=== PATIENT | male | born 1965 | race Hispanic/Latino ===

== ENCOUNTER 2020-03-26 07:30 | Day surgery (SDC) | payer OTHER ==
[2020-03-22 10:27] LABS: BUN/Creatinine Ratio 36; Blood Urea Nitrogen 25 mg/dL (9-20); Calcium 9.2 mg/dL (8.4-10.2); Hemolysis Index 5
[~2020-03-26 07:30] MED LIST: ceFAZolin/Water 2 GM/20 ML 2 GM/20 ML SYRINGE IV SCH
--- NOTE | 2020-03-26 08:10 | Anesthesia Consultation ---
Anesthesia Consult and Med Hx Date of service: 03/26/20 - Airway Anesthetic Teeth Evaluation: Caps, Crowns ROM Head & Neck: Adequate Mental/Hyoid Distance: Adequate Mallampati Class: Class III Intubation Access Assessment: Possibly Difficult - Pre-Operative Health Status ASA Pre-Surgery Classification: ASA3 Proposed Anesthetic Plan: MAC - Pulmonary Hx Smoking: Yes (STOPPED X 5 YRS) Hx Asthma: No Hx Respiratory Symptoms: No SOB: No COPD: No Home Oxygen Therapy: No Hx Pneumonia: No Hx Sleep Apnea: Yes (BERTIN PRE SCREEN HIGH RISK) - Cardiovascular System Hx Hypertension: Yes (X 15 YRS) Hx Coronary Artery Disease: No Hx Heart Attack/AMI: No Hx Angina: No Hx Percutaneous Transluminal Coronary Angioplasty (PTCA): No Hx Cardia Arrhythmia: No Hx Pacemaker: No Hx Internal Defibrillator: No Hx Valvular Heart Disease: No Hx Heart Murmur: No Hx Peripheral Vascular Disease: No - Central Nervous System Hx Neuromuscular Disorder: No Hx Seizures: No CVA: No Hx Back Pain: No Hx Psychiatric Problems: No - Gastrointestinal Hx Ulcer: No Hx Gastroesophageal Reflux Disease: Yes - Endocrine Hx Renal Disease: No Hx End Stage Renal Disease: No Hx Cirrhosis: No Hx Liver Disease: Yes (hep A) Hx Insulin Dependent Diabetes: No Hx Non-Insulin Dependent Diabetes: Yes Hx Thyroid Disease: No Hx Hypothyroidism: No Hx Hyperthyroidism: No - Hematic Hx Anemia: No Hx Sickle Cell Disease: No - Other Systems Hx Alcohol Use: No Hx Substance Use: No Hx Cancer: No Hx Obesity: Yes
--- NOTE | 2020-03-26 08:11 | Anesthesia Day of Surgery ---
Anesthesia Day of Surgery - Day of Surgery Patient Examined: Yes Patient H&P Reviewed: Yes Patient is NPO: Yes
[2020-03-26] MEDS ORDERED: LACTATED RINGERS 1,000 ML IV SCH (08:15)
[2020-03-26] MEDS ORDERED: LACTATED RINGERS 1,000 ML ONE (08:24)
[2020-03-26] MEDS ORDERED: fentaNYL 100 MCG/2 ML INJ ONE (10:18)
[2020-03-26] MEDS ORDERED: LIDOCAINE MPF (2%) 20 MG/1 ML VIAL 5 ML ONE (10:18)
[2020-03-26] MEDS ORDERED: MIDAZOLAM 2 MG/2 ML INJ ONE (10:18)
[2020-03-26] MEDS ORDERED: KETAMINE/STERILE WATER 50 MG/ML SYRINGE ONE (10:19)
[2020-03-26] MEDS ORDERED: propofoL 200 MG/20 ML VIAL IV ONE ×2 (10:19→10:28)
[2020-03-26] MEDS ORDERED: BUPIVACAINE/PF (0.25%) 2.5 MG/ML 30 ML VIAL INFILTRATI ONE (10:25)
[2020-03-26] MEDS ORDERED: SODIUM CHLORIDE 0.9% IRR 1,500 ML BOTTLE IR ONE (10:25)
[2020-03-26] MEDS ORDERED: LIDOCAINE (1%) 10 MG/1 ML VIAL 20 ML MDV INFILTRATI ONE (10:25)
--- NOTE | 2020-03-26 10:45 | Short Stay Summary ---
Short Stay Documentation Date of service: 03/26/20 - History Principal diagnosis: cyst of back H&P: obtained from office - Allergies and Medications Current Medications: Allergies No Known Allergies Allergy (Verified 03/21/20 12:52) Home Medications Medication Instructions Recorded Confirmed Last Taken Type Aspirin [Adult Aspirin] 81 mg PO DAILY 03/21/20 03/26/20 03/19/20 08:00 History AtorvaSTATin [Lipitor] 20 mg PO QHS 03/21/20 03/26/20 03/25/20 21:00 History Cholecalciferol (Vitamin D3) 2,000 unit PO QDAY 03/21/20 03/26/20 03/25/20 08:00 History [Vitamin D3 2,000 UNIT CAP] Ciprofloxacin HCl [Ciprofloxacin 500 mg PO Q12HR 03/21/20 03/26/20 03/25/20 21:00 History TAB] Dulaglutide [Trulicity] 1.5 mg SQ DAILY 03/21/20 03/26/20 03/25/20 08:00 History Glimepiride [Amaryl] 2 mg PO DAILY 03/21/20 03/26/20 03/25/20 08:00 History Lisinopril/Hydrochlorothiazide 1 each PO DAILY 03/21/20 03/26/20 03/25/20 08:00 History [Zestoretic 10-12.5 mg Tablet] Meloxicam [Mobic] 7.5 mg PO QDAY 03/21/20 03/26/20 03/25/20 08:00 History Metoprolol [Lopressor TAB] 50 mg PO DAILY 03/21/20 03/26/20 03/25/20 08:00 History Multivit-Min/FA/Lycopen/Lutein 1 each PO DAILY 03/21/20 03/26/20 03/25/20 08:00 History [Centrum Silver Men Tablet] [place]-3 Fatty Acids/Fish Oil [Fish 3,600 mg PO DAILY 03/21/20 03/26/20 03/25/20 08:00 History Oil] Turmeric Root Extract [Turmeric] 1,500 mg PO DAILY 03/21/20 03/26/20 03/25/20 08:00 History metFORMIN [Glucophage] 500 mg PO BID 03/21/20 03/26/20 03/25/20 08:00 History Active Medications Cefazolin Sodium (Ancef/Sterile Water 2 Gm/20 Ml) 2 gm in 20 mls @ 120 mls/hr IV PREOP JEAN-PIERRE Stop: 03/26/20 23:59 Lactated Ringer's (Lactated Ringers) 1,000 mls @ 75 mls/hr IV DIRECT JEAN-PIERRE Last Admin: 03/26/20 08:25 Dose: 75 mls/hr Documented by: - Brief post op/procedure progress note Date of procedure: 03/26/20 Pre-op diagnosis: cyst of back Post-op diagnosis: same Procedure: excision of back cyst Anesthesia: MAC, local Findings: 1 cm epidermal inclusion cyst of back with surrounding chronic inflammation and scant purulent drainage Surgeon: DARIN POLANCO Estimated blood loss: minimal Pathology: list (cyst of back) Specimen disposition: to lab Condition: stable - Hospital course Hospital course: Pt observed in PACU and discharged to home in stable condition when criteria met - Disposition Condition at discharge: Good Disposition: DC- TO HOME OR SELFCARE Short Stay Discharge Plan Activity: no restrictions Diet: regular Wound: other (keep covered with gauze or bandaid) Additional Instructions: SEE PRINTED DISCHARGE INSTRUCTIONS Follow up with: BARB VAZQUEZ MD [Primary Care Provider] - 7 Days DARIN POLANCO DO [Staff Physician] - 14 Days Prescriptions: HYDROcodone/APAP 5-325 [[place] 5/325] 1 each PO Q6HR PRN #10 tablet PRN Reason: Pain
[2020-03-26 11:51] VITALS: BP 119/45
--- NOTE | 2020-03-26 13:54 | Post Anesthesia Evaluation ---
- Post Anesthesia Evaluation Patient Participated: Yes Airway Patent: Yes Stable Respiratory Function: Yes Nausea/Vomiting: No Temp > 96.8F: Yes Pain Manageable: Yes Adequeate Hydration: Yes Anesthesia Complications: No Block Receding Appropriately: Not Applicable Patient on Ventilator: No
--- NOTE | 2020-03-26 15:56 | Operative Report ---
Operative Report Operative Report: Date of procedure: 03/26/20 Pre-op diagnosis: cyst of back Post-op diagnosis: same Procedure: excision of back cyst Anesthesia: MAC, local Findings: 1 cm epidermal inclusion cyst of back with surrounding chronic inflammation and scant purulent drainage Surgeon: DARIN POLANCO Estimated blood loss: minimal Pathology: list (cyst of back) Specimen disposition: to lab Condition: stable Hospital course: Pt observed in PACU and discharged to home in stable condition when criteria met Indication: Patient is a 55-year-old male who presented to the office for a workup of a back cyst. The cyst is been present for some time and would swell up from time to time. He had been performing expression of the cyst contents at home. The patient was found to have a epidermal inclusion cyst of the back with mild erythema. He was placed on antibiotics for 1 week and it was recommended that he undergo elective excision. All risks, benefits, alternatives to surgery were discussed with the patient and questions answered. Consent was obtained for excision of back cyst. Procedure in detail: Patient was identified in the preoperative area, taken back to the operating room, placed on the operating room table in prone position. All bony prominences were padded appropriately.. After anesthesia was induced, the upper and mid back was prepped and draped in usual sterile fashion and a timeout was performed. Local anesthetic was injected into the skin at the intended incision site. An elliptical incision was made in the skin around the cyst using a 15 blade. Dissection was carried down through the skin using electrocautery. The cyst was identified and using a combination of blunt dissection with a hemostat and electrocautery, the cyst wall was carefully dissected away from the surrounding tissue circumferentially. Once normal fatty tissue was identified the cyst wall in its entirety was removed from the subcutaneous tissue using Bovie electrocautery. There was surrounding chronic inflammation and scant purulent drainage seen during the dissection. The epidermal inclusion cyst measured 1 cm. This was then passed off the table as a specimen. The wound was then irrigated and hemostasis achieved with electrocautery. Hemostasis was very carefully ensured. At this point the incision was approximated. Small subcutaneous flaps were created on either side and the skin approximated using interrupted 2-0 nylon stitches. The skin was then cleansed and a 4 x 4 gauze dressing was applied and secured with Medipore tape. At the end of the case, all sponge, instrument, sharp counts were correct 2. The patient was awoken from anesthesia and taken to PACU in stable condition.
== END 2020-03-26 11:45 | disposition home or self-care (01) ==
LOC: OR 07:30
PROVIDERS: ATTEND Surgery
DX: R22.2 Localized swelling, mass and lump, trunk (principal); L72.0 Epidermal cyst; E78.00 Pure hypercholesterolemia, unspecified; I10 Essential (primary) hypertension; K21.9 Gastro-esophageal reflux disease without esophagitis; E66.9 Obesity, unspecified; E11.9 Type 2 diabetes mellitus without complications; Z98.890 Other specified postprocedural states; Z79.82 Long term (current) use of aspirin; Z79.84 Long term (current) use of oral hypoglycemic drugs; Z79.899 Other long term (current) drug therapy; Z87.891 Personal history of nicotine dependence; Z68.34 Body mass index [BMI] 34.0-34.9, adult
CPT/HCPCS: 36415; 80048; 82962; 88304; 88305; J0690; J2250; J2704; J3010; J3490; J7120; U0003-CS